=== PATIENT | male | born 1980 | race Caucasian/White ===

== ENCOUNTER 2016-12-21 23:40 | Inpatient (IN) | payer OTHER ==
[~2016-12-21] VITALS: Ht 175.3 cm; Wt 69.0 kg
[2016-12-22] MEDS ORDERED: ONDANSETRON 2MG/ML, 2ML IVPush ONE (01:30)
[2016-12-22] MEDS ORDERED: HYDROmorphone 1 MG/ML, 1ML IV ONE (01:30)
[2016-12-22] MEDS: PLEASE ENTER ALLERGIES MC SCH ×6 (01:36→09:47)
[2016-12-22] MEDS ORDERED: ONDANSETRON 2MG/ML, 2ML ONE (01:37)
[2016-12-22] MEDS ORDERED: HYDROmorphone 1 MG/ML, 1ML ONE (01:37)
[2016-12-22 01:54] LABS: BLOOD UREA NITROGEN 9 mg/dL (7-18)
[2016-12-22] MEDS ORDERED: D5%-0.45% NACL 1,000 ML IV ONE (02:16)
[2016-12-22] MEDS ORDERED: ONDANSETRON 2MG/ML, 2ML IVPush PRN ×2 (02:30→11:00)
[2016-12-22 04:00] VITALS: BP 111/74
[2016-12-22] MEDS: HYDROmorphone 1 MG/ML, 1ML IVPush PRN ×2 (04:39→09:16)
[2016-12-22 05:12] VITALS: BP 137/80
[2016-12-22 07:13] VITALS: BP 115/75
[2016-12-22] MEDS: D5%-0.45% NACL 1,000 ML IV SCH ×3 (11:38→22:21)
[2016-12-22 13:08] VITALS: BP 121/74
[2016-12-22] MEDS: HYDROmorphone 1 MG/ML, 1ML IV PRN ×3 (14:31→22:21)
[2016-12-22 20:03] VITALS: BP 115/75
[2016-12-23 03:21] VITALS: BP 103/66
[2016-12-23] MEDS: HYDROmorphone 1 MG/ML, 1ML IV PRN ×3 (05:37→12:26)
[2016-12-23] MEDS: D5%-0.45% NACL 1,000 ML IV SCH ×2 (05:42→13:07)
[2016-12-23 07:14] VITALS: BP 108/69
[2016-12-23 13:45] VITALS: BP 100/61
== END 2016-12-23 16:35 | disposition home or self-care (01) | DRG 552 ==
LOC: ED 12-22 02:59 → EDIP 12-22 03:00 → 4NOR 12-22 03:44 → DCLOUNGE 12-23 16:18
PROVIDERS: ADMIT Orthopaedic Surgery Orthopaedic Surgery of the Spine; ATTEND Orthopaedic Surgery Orthopaedic Surgery of the Spine
DX: M50.122 Cervical disc disorder at C5-C6 level with radiculopathy (principal); F17.200 Nicotine dependence, unspecified, uncomplicated; R53.1 Weakness
CPT/HCPCS: 36415; 80048; 82040; 85025; 85610; 93005; 96365; 96375; J1170; J2405